=== PATIENT | female | born 1935 | race Caucasian/White ===

== ENCOUNTER 2020-10-17 02:34 | Emergency (ER) | payer MEDICARE, OTHER ==
[~2020-10-17] VITALS: Ht 157.5 cm; Wt 58.5 kg
[~2020-10-17 02:34] MED LIST: AMOCLA500 PO; ASPI325 PO; ASPI81EC PO; ATOR40TA PO; BUTASPCAF PO; CEPH500 PO; CLOP75 PO; ESOM20 PO; GABA300 PO; LOVA20 PO; METO25ER PO; VERA100 PO; ZANAFLEX PO
[2020-10-17 02:52] LABS: BASOPHILS ABSOLUTE AUTO 0.04 K/mm3 (0.00-0.23); BASOPHILS PERCENT AUTO 1 % (0-2); EOSINOPHILS ABSOLUTE AUTO 0.24 K/mm3 (0.00-0.68); EOSINOPHILS PERCENT AUTO 4 % (0-6); Hematocrit 37.7 % (33.0-51.0); Hemoglobin 12.3 g/dL (11.5-16.0); IMMATURE GRAN ABSOLUTE AUTO 0.01 K/mm3 (0.00-0.10); IMMATURE GRAN PERCENT AUTO 0 % (0-1); LYMPHOCYTES ABSOLUTE AUTO 1.33 K/mm3 (0.84-5.20); LYMPHOCYTES PERCENT AUTO 23 % (21-46); MONOCYTES ABSOLUTE AUTO 0.63 K/mm3 (0.16-1.47); MONOCYTES PERCENT AUTO 11 % (4-13); Mean Corpuscular HGB 32.3 pg (26.0-34.0); Mean Corpuscular HGB Conc 32.6 g/dL (31.5-36.5); Mean Corpuscular Volume 99 fL (80-100); Mean Platelet Volume 9.6 fL (9.1-12.4); NEUTROPHILS ABSOLUTE AUTO 3.65 K/mm3 (1.96-9.15); NEUTROPHILS PERCENT AUTO 62 % (41-73); Platelet Count 231 K/mm3 (150-400); RDW Coefficient Variation 12.4 % (11.7-14.2); Red Blood Cell Count 3.81 M/mm3 (3.80-5.20)
[2020-10-17 03:06] LABS: Alanine Aminotransfer (ALT/SGP 15 U/L (12-78); Albumin, Blood 3.7 g/dL (3.4-5.0); Albumin/Globulin Ratio 1.3 (0.8-1.8); Alk Phos 70 U/L (50-136); Anion Gap 6 mmol/L (6-16); Aspartate Aminotrans (AST/SGOT 19 U/L (12-37); Bilirubin, Total 0.5 mg/dL (0.1-1.0); Blood Urea Nitrogen 18 mg/dL (8-24); Bun/Creatinine Ratio 19.1 (12.0-20.0); CO2, Blood 27 mmol/L (21-32); Calcium, Blood 8.7 mg/dL (8.5-10.1); Chloride, Blood 105 mmol/L (98-108); Creatinine, Blood 0.94 mg/dL (0.40-1.00); Ethanol (Alcohol), Blood, Med <3 mg/dL; Globulin, Blood 2.9 g/dL (2.2-4.0); Glomerular Filtration Rate 60 (60-); Glucose, Blood 121 mg/dL (70-99); Sodium, Blood 138 mmol/L (136-145); Total Protein, Blood 6.6 g/dL (6.4-8.2)
[2020-10-17 03:09] LABS: International Normalized Ratio 1.02; Prothrombin Time Results 10.9 Sec (9.7-11.5)
== END 2020-10-17 06:50 | disposition home or self-care (01) ==
LOC: ER 02:34
PROVIDERS: Emergency Medicine
DX: S01.81XA Laceration without foreign body of other part of head, initial encounter (principal); I10 Essential (primary) hypertension; E78.00 Pure hypercholesterolemia, unspecified; K21.9 Gastro-esophageal reflux disease without esophagitis; Z79.02 Long term (current) use of antithrombotics/antiplatelets; Z79.899 Other long term (current) drug therapy; Z79.82 Long term (current) use of aspirin; Z88.5 Allergy status to narcotic agent; Z23 Encounter for immunization; Z95.5 Presence of coronary angioplasty implant and graft; W22.8XXA Striking against or struck by other objects, initial encounter
CPT/HCPCS: 12015; 36415; 70450; 72125; 80053; 85025; 85610; 85730; 86850; 86900; 86901; 90471; 90714; 93005; 93010; 96374-59; 96376-59; 99284-25; G0480; J3010

== ENCOUNTER 2022-08-28 08:50 | Inpatient (IN) | payer MEDICARE, OTHER ==
[~2022-08-28] VITALS: Ht 162.6 cm; Wt 48.2 kg
[~2022-08-28 08:50] MED LIST changes: -ASPI81EC PO; +ATOR10 PO; +Aspir 8181 MG PO; +MIRALAX17 GM PO; +OMEP20ER PO
[2022-08-28 09:33] LABS: BASOPHILS ABSOLUTE AUTO 0.03 K/mm3 (0.00-0.23); BASOPHILS PERCENT AUTO 0 % (0-2); EOSINOPHILS ABSOLUTE AUTO 0.07 K/mm3 (0.00-0.68); EOSINOPHILS PERCENT AUTO 1 % (0-6); IMMATURE GRAN ABSOLUTE AUTO 0.02 K/mm3 (0.00-0.10); IMMATURE GRAN PERCENT AUTO 0 % (0-1); LYMPHOCYTES ABSOLUTE AUTO 0.69 K/mm3 (0.84-5.20); LYMPHOCYTES PERCENT AUTO 9 % (21-46); MONOCYTES ABSOLUTE AUTO 0.63 K/mm3 (0.16-1.47); MONOCYTES PERCENT AUTO 8 % (4-13); Mean Corpuscular HGB 25.2 pg (26.0-34.0); Mean Corpuscular HGB Conc 30.4 g/dL (31.5-36.5); Mean Corpuscular Volume 83 fL (80-100); Mean Platelet Volume 9.8 fL (9.1-12.4); NEUTROPHILS ABSOLUTE AUTO 6.11 K/mm3 (1.96-9.15); NEUTROPHILS PERCENT AUTO 81 % (41-73); Platelet Count 268 K/mm3 (150-400); RDW Coefficient Variation 20.5 % (11.7-14.2); RDW Standard Deviation 62.1 fL (35.1-46.3); Red Blood Cell Count 2.06 M/mm3 (3.80-5.20); White Blood Cell Count 7.55 K/mm3 (4.00-11.30)
[2022-08-28 09:37] LABS: Hemoglobin 5.2 g/dL (11.5-16.0)
[2022-08-28 09:38] LABS: Hematocrit 17.1 % (33.0-51.0)
[2022-08-28 10:01] LABS: Albumin, Blood 2.9 g/dL (3.4-5.0); Albumin/Globulin Ratio 1.1 (0.8-1.8); Bilirubin, Total 0.3 mg/dL (0.1-1.0); Bun/Creatinine Ratio 56.5 (12.0-20.0); Calcium, Blood 7.9 mg/dL (8.5-10.1); Creatinine, Blood 0.83 mg/dL (0.40-1.00); Globulin, Blood 2.7 g/dL (2.2-4.0); Potassium, Blood 3.7 mmol/L (3.5-5.5); Total Protein, Blood 5.6 g/dL (6.4-8.2)
[2022-08-28 10:24] LABS: International Normalized Ratio 1.1; Prothrombin Time Results 11.5 Sec (9.7-11.5)
[2022-08-28] MEDS ORDERED: ATOR10 PO (10:54)
[2022-08-28] MEDS ORDERED: CLOP75 PO (10:55)
[2022-08-28] MEDS ORDERED: NITR.4SL SL (10:57)
[2022-08-28] MEDS ORDERED: OMEPRAZOLE 40 MG PO (10:58)
[2022-08-28 13:02] LABS: Source, Urine Clean Catch
[2022-08-28 13:09] LABS: Appearance, Urine Clear (Clear); Bilirubin, Urine Neg (Neg); Blood, Urine Neg (Neg); Color, Urine Yellow (P-Yellow); Glucose Qualitative, Urine Neg (Neg); Ketones, Urine Neg (Neg); Leukocyte Esterase, Urine Neg (Neg); Nitrite, Urine Neg (Neg); Protein, Urine Neg (Neg); Specific Gravity, Urine 1.015 (1.003-1.022); Urobilinogen, Urine NORM (Normal)
[2022-08-28 17:53] LABS: Hemoglobin 7.5 g/dL (11.5-16.0)
--- NOTE | 2022-08-28 19:36 | NUR ---
SHIFT SUMMARY 1215 RECEIVED PT TO 339 VIA GURNEY FROM ER. SLIDE TX TO BED. PT ADMITTED FOR ACUTE BLOOD LOSS D/T GIB. PT TO RECEIVE 2 UNITS PRBC'S; 1ST UNIT STARTED IN ER AND INFUSING UPON ADMISSION TO . PT TOLERATED WELL. 2ND UNIT STARTED SOON 1ST UNIT COMPLETE. VSS, SEE CHART. DR PRECIADO AND SOON DR LAGUERRE TO TO SEE PT AND DISCUSS PLAN OF CARE. PT TO HAVE SCOPE IN THE NEXT DAY OR SO. PER DR LAGUERRE, DIET CAN BE ADVANCED TO CL IF H/H INCREASED TO GREATER THAN 7.0. LAB RESULT SHOWING 7.5. PROTONIX DRIP STARTED PER DR PRECIADO. P/T IN TO SEE PT FOR EVAL AND ABLE TO STAND AT BS ONLY BREIFLY. PT IS VERY WEAK D/T BLOOD LOSS, WHICH RESULTED IN FALL AT HOME. RECEIVED REPORT FROM NASRA MOHR; PT LIVING ALONE BUT CLOSE TO DAUGHTER. ON PLAVIX FOR A-FIB WITH CONTROLED RATE. FAMILY TO AT BS WITH ADMISSION AND FOR THE AFTERNOON. FAMILY TO RETURN IN AM. PT TO MOVE TO [place] WITH SON AT D/C FOR SAFETY. PT MEDICATED X1 FOR C/O PAIN TO L BACK. DR PRECIADO NOTIFIED FOR ADDITIONAL PAIN MEDICATION; NO NEW ORDERS RECEIVED. PT REPOSITIONED NEEDED FOR COMFORT. PT OFFERED CL DIET; REQUESTED ICE WATER AND CHICKEN BROTH AT THIS TIME. CALL LT IN REACH. REPORT GIVEN TO UMA MOHR.
[2022-08-29 01:25] LABS: BASOPHILS ABSOLUTE AUTO 0.04 K/mm3 (0.00-0.23); BASOPHILS PERCENT AUTO 1 % (0-2); EOSINOPHILS ABSOLUTE AUTO 0.08 K/mm3 (0.00-0.68); EOSINOPHILS PERCENT AUTO 1 % (0-6); Hematocrit 22.4 % (33.0-51.0); Hemoglobin 7.1 g/dL (11.5-16.0); IMMATURE GRAN ABSOLUTE AUTO 0.02 K/mm3 (0.00-0.10); IMMATURE GRAN PERCENT AUTO 0 % (0-1); LYMPHOCYTES ABSOLUTE AUTO 0.99 K/mm3 (0.84-5.20); LYMPHOCYTES PERCENT AUTO 16 % (21-46); MONOCYTES ABSOLUTE AUTO 0.64 K/mm3 (0.16-1.47); MONOCYTES PERCENT AUTO 10 % (4-13); Mean Corpuscular HGB Conc 31.7 g/dL (31.5-36.5); Mean Corpuscular Volume 82 fL (80-100); Mean Platelet Volume 9.6 fL (9.1-12.4); NEUTROPHILS PERCENT AUTO 72 % (41-73); Platelet Count 200 K/mm3 (150-400); RDW Coefficient Variation 18.5 % (11.7-14.2); RDW Standard Deviation 54.6 fL (35.1-46.3); Red Blood Cell Count 2.73 M/mm3 (3.80-5.20); White Blood Cell Count 6.27 K/mm3 (4.00-11.30)
[2022-08-29 01:40] LABS: Bun/Creatinine Ratio 37.9 (12.0-20.0); Calcium, Blood 7.7 mg/dL (8.5-10.1); Creatinine, Blood 0.82 mg/dL (0.40-1.00); Potassium, Blood 3.4 mmol/L (3.5-5.5)
--- NOTE | 2022-08-29 05:53 | NUR ---
Patient new admit for GI bleed. Protinix drip infusing, 1 bag of NS infused. Patient reported recent GLF, and severe back pain. 500mg Tylenol given for pain & heating pad provided, PRNs not effective. MD ordered 1 dose of IV Fentynal x1 & Percocet Q6H PRN for pain control. IV Fentynal administred, PRN effective. Patient resting comfortably all night. Vitals stable. Clear liquid diet ordered, plan is for GI scope later today. Awaiting MD orders. Will continue to monitor for GI bleeding, weakness. Bed alarm activated & audible, call-light in reach.
[2022-08-29 09:27] LABS: Hematocrit 21.8 % (33.0-51.0); Hemoglobin 6.7 g/dL (11.5-16.0)
[2022-08-29 17:11] LABS: BASOPHILS ABSOLUTE AUTO 0.04 K/mm3 (0.00-0.23); BASOPHILS PERCENT AUTO 1 % (0-2); EOSINOPHILS ABSOLUTE AUTO 0.23 K/mm3 (0.00-0.68); EOSINOPHILS PERCENT AUTO 4 % (0-6); Hematocrit 25.3 % (33.0-51.0); IMMATURE GRAN ABSOLUTE AUTO 0.02 K/mm3 (0.00-0.10); IMMATURE GRAN PERCENT AUTO 0 % (0-1); LYMPHOCYTES ABSOLUTE AUTO 0.78 K/mm3 (0.84-5.20); LYMPHOCYTES PERCENT AUTO 14 % (21-46); MONOCYTES ABSOLUTE AUTO 0.52 K/mm3 (0.16-1.47); MONOCYTES PERCENT AUTO 9 % (4-13); Mean Corpuscular HGB 26.3 pg (26.0-34.0); Mean Corpuscular HGB Conc 31.6 g/dL (31.5-36.5); Mean Corpuscular Volume 83 fL (80-100); Mean Platelet Volume 9.7 fL (9.1-12.4); NEUTROPHILS ABSOLUTE AUTO 3.98 K/mm3 (1.96-9.15); NEUTROPHILS PERCENT AUTO 72 % (41-73); NRBC ABSOLUTE 0.03 K/mm3 (0.00-0.02); NRBC Auto 0.5 /100 WBC (0.0-0.2); Platelet Count 193 K/mm3 (150-400); RDW Coefficient Variation 18.2 % (11.7-14.2); RDW Standard Deviation 53.1 fL (35.1-46.3); Red Blood Cell Count 3.04 M/mm3 (3.80-5.20); White Blood Cell Count 5.57 K/mm3 (4.00-11.30)
--- NOTE | 2022-08-29 18:46 | NUR ---
SHIFT SUMMARY- PT IS A/O, PLESANT AND COOPERATIVE. SHE IS ON A CLEAR LIQUID DIET. HER SON WAS AT BEDSIDE THIS SHIFT. PLAN IS FOR HER TO GO FOR A SCOPE TOMORROW. SHE WILL BE NPO AFTERMIDNIGHT. SHE RECIEVED ONE UNIT OF BLOOD THIS SHIFT. HER HGB IMPROVED. HER BED IS IN THE LOW POSITION AND CALL LIGHT IS WITHIN REACH. SHE IS RUNNING ON THE [employer] DRIP
--- NOTE | 2022-08-30 04:49 | NUR ---
NIGHTSHIFT SUMMARY Patient awoke began yelling for help, she stated she forgot where she was at. Patient incontinent of bladder, provided pa-care, no signs of bleeding noted. Patient still complaining of severe back pain. Heating pad in place, administred Percocet for pain, PRN effective. Protonix gtt infusing continously. Patient slept comfortably all night, respirations even/nonlabored. NPO at midnight, in prep for scope tomorrow. Bed alarms activated/audible, call light in reach. Will continue plan of care.
[2022-08-30 10:08] LABS: BASOPHILS ABSOLUTE AUTO 0.03 K/mm3 (0.00-0.23); BASOPHILS PERCENT AUTO 1 % (0-2); EOSINOPHILS ABSOLUTE AUTO 0.21 K/mm3 (0.00-0.68); EOSINOPHILS PERCENT AUTO 3 % (0-6); Hematocrit 30.2 % (33.0-51.0); Hemoglobin 9.3 g/dL (11.5-16.0); IMMATURE GRAN ABSOLUTE AUTO 0.01 K/mm3 (0.00-0.10); IMMATURE GRAN PERCENT AUTO 0 % (0-1); LYMPHOCYTES ABSOLUTE AUTO 0.63 K/mm3 (0.84-5.20); LYMPHOCYTES PERCENT AUTO 10 % (21-46); MONOCYTES ABSOLUTE AUTO 0.54 K/mm3 (0.16-1.47); MONOCYTES PERCENT AUTO 9 % (4-13); Mean Corpuscular HGB 26.4 pg (26.0-34.0); Mean Corpuscular HGB Conc 30.8 g/dL (31.5-36.5); Mean Corpuscular Volume 86 fL (80-100); Mean Platelet Volume 9.9 fL (9.1-12.4); NEUTROPHILS ABSOLUTE AUTO 4.96 K/mm3 (1.96-9.15); NEUTROPHILS PERCENT AUTO 78 % (41-73); Platelet Count 186 K/mm3 (150-400); RDW Coefficient Variation 19.3 % (11.7-14.2); RDW Standard Deviation 57.7 fL (35.1-46.3); Red Blood Cell Count 3.52 M/mm3 (3.80-5.20); White Blood Cell Count 6.38 K/mm3 (4.00-11.30)
--- NOTE | 2022-08-30 10:33 | NUR ---
THIS AM, WHEN OT CAME INTO PATIENT ROOM, SHE STATED SHE DIDN'T WANT ANY FOOD, AND DIDN'T WANT TO DO ANYTHING. SHE SAID THAT SHE IS READY TO GO HOME AND . MOOD CHANGED BY THE TIME THIS INSIDE SALES DIRECTOR WENT TO SEE PATIENT, SHE DID NOT MAKE ANY FURTHER STATEMENTS AND WAS DRINKING AN ENSURE. PATIENT NPO NOW FOR SCOPE AT SOME POINT TODAY.
[2022-08-30 10:43] LABS: Albumin, Blood 3.2 g/dL (3.4-5.0); Anion Gap 8 mmol/L (6-16); Blood Urea Nitrogen 16 mg/dL (8-24); Bun/Creatinine Ratio 18.6 (12.0-20.0); CO2, Blood 22 mmol/L (21-32); Calcium, Blood 8.5 mg/dL (8.5-10.1); Chloride, Blood 109 mmol/L (98-108); Creatinine, Blood 0.86 mg/dL (0.40-1.00); Glomerular Filtration Rate 66 (60-); Glucose, Blood 164 mg/dL (70-99); Phosphorus, Blood 3.7 mg/dL (2.5-4.9); Potassium, Blood 3.5 mmol/L (3.5-5.5); Sodium, Blood 139 mmol/L (136-145)
--- NOTE | 2022-08-30 17:32 | NUR ---
PATIENT MOOD DURING THIS SHIFT WAS SOMEWHAT DEPRESSED. SHE STATED TO MULTIPLE STAFF THAT SHE IS TIRED OF ALL OF THIS AND JUST WANT TO STOP EVERYTHING. .SHE WENT DOWN FOR HER SCOPE AT 1730. PROTONIX HAS BEEN RUNNING ALL SHIFT. THERE IS A BAG THAT PARTIALLY INFUSED ON THE IV POLE FOR WHEN SHE COMES BACK FROM SURGERY IF THEY DON'T DISCONTINUE THAT MEDICATION. SHE WAS GIVEN PAIN MEDICATION X 1, AND SLEPT AFTERWARD. BLOOD CONSENT AND CHART SENT DOWN WITH PATIENT FOR PROCEDURE. PATIENT HAD A BM THAT WAS HERZOG IN COLOR THIS SHIFT.
--- NOTE | 2022-08-30 17:54 | NUR ---
08/30/22 1754 Darya Dc HISTORY, CHART, MEDICATIONS AND ALLERGIES REVIEWED BEFORE START OF PROCEDURE. PATIENT CONFIRMS NPO STATUS AND AGREES WITH SCHEDULED PROCEDURE. 3-LEAD EKG REVIEWED WITH PHYSICIAN PRIOR TO START OF PROCEDURE. MONITOR INTACT WITH CONTINUOUS PULSE OXIMETRY,CAPNOGRAPHY, 3-LEAD EKG, INTERMITTENT BP. SUPPLEMENTAL O2 TO BE TITRATED THROUGHOUT PROCEDURE TO MAINTAIN O2 SATURATION ABOVE 90%. PATIENT DETERMINED TO BE ASA APPROPRIATE FOR PROPOFOL SEDATION PRIOR TO START OF PROCEDURE BY DR. LAGUERRE AND DR. PEREZ, AFTER ANESTHESIA CONSULT/REVIEW.
--- NOTE | 2022-08-30 19:06 | NUR ---
PART 2 SHIFT SUMMARY PATIENT RETURNED FROM SCOPE. SHE WAS SEDATED WITH 170MG PROPOFAL. A GASTRIC ULCER OF GOOD SIZE WAS FOUND. ALSO, PATIENT HAS INFLAMATION OF THE ESOPHAGUS. SHE IS STILL ON THE PROTONIX CONTINUOUS DRIP AT 10 ML/HR. DIET IS CLEAR LIQUID ADVANCE TOLERATED. FIRST SET OF VITALS DONE WHEN SHE RETURNED TO THE FLOOR AND ARE WNL.
--- NOTE | 2022-08-31 03:55 | NUR ---
SHIFT SUMMARY NO ACUTE CHANGES TO REPORT THIS SHIFT, PT HAS RESTED T/O THE NIGHT. S/P UPPER SCOPE. SHE HAS RECOVERED WELL, POST OP VITALS ARE STABLE. PROTONIX GTT INFUSING. NO SIGNS OF BLEEDING THIS SHIFT. SHE HAS BEEN UP AND AMBULATED TO THE B[facility]. A/OX4, PLESANT AND COOPERATIVE WITH CARE. BED IN LOWEST POSITON, CALL LIGHT WITHIN REACH.
[2022-08-31 06:42] LABS: BASOPHILS ABSOLUTE AUTO 0.03 K/mm3 (0.00-0.23); BASOPHILS PERCENT AUTO 1 % (0-2); EOSINOPHILS ABSOLUTE AUTO 0.24 K/mm3 (0.00-0.68); EOSINOPHILS PERCENT AUTO 5 % (0-6); Hematocrit 26.9 % (33.0-51.0); Hemoglobin 8.3 g/dL (11.5-16.0); IMMATURE GRAN ABSOLUTE AUTO 0.01 K/mm3 (0.00-0.10); IMMATURE GRAN PERCENT AUTO 0 % (0-1); LYMPHOCYTES ABSOLUTE AUTO 0.66 K/mm3 (0.84-5.20); LYMPHOCYTES PERCENT AUTO 14 % (21-46); MONOCYTES ABSOLUTE AUTO 0.55 K/mm3 (0.16-1.47); MONOCYTES PERCENT AUTO 11 % (4-13); Mean Corpuscular HGB 26.4 pg (26.0-34.0); Mean Corpuscular HGB Conc 30.9 g/dL (31.5-36.5); Mean Corpuscular Volume 86 fL (80-100); Mean Platelet Volume 10.5 fL (9.1-12.4); NEUTROPHILS ABSOLUTE AUTO 3.39 K/mm3 (1.96-9.15); NEUTROPHILS PERCENT AUTO 70 % (41-73); Platelet Count 179 K/mm3 (150-400); RDW Coefficient Variation 19.3 % (11.7-14.2); RDW Standard Deviation 57.1 fL (35.1-46.3); Red Blood Cell Count 3.14 M/mm3 (3.80-5.20); White Blood Cell Count 4.88 K/mm3 (4.00-11.30)
[2022-08-31 06:53] LABS: Albumin, Blood 2.7 g/dL (3.4-5.0); Anion Gap 8 mmol/L (6-16); Blood Urea Nitrogen 14 mg/dL (8-24); Bun/Creatinine Ratio 17.6 (12.0-20.0); CO2, Blood 24 mmol/L (21-32); Calcium, Blood 8.1 mg/dL (8.5-10.1); Chloride, Blood 107 mmol/L (98-108); Glomerular Filtration Rate 72 (60-); Glucose, Blood 109 mg/dL (70-99); Phosphorus, Blood 3.5 mg/dL (2.5-4.9); Potassium, Blood 3.5 mmol/L (3.5-5.5); Sodium, Blood 139 mmol/L (136-145)
[2022-08-31 10:55] LABS: BASOPHILS ABSOLUTE AUTO 0.03 K/mm3 (0.00-0.23); BASOPHILS PERCENT AUTO 1 % (0-2); EOSINOPHILS ABSOLUTE AUTO 0.23 K/mm3 (0.00-0.68); EOSINOPHILS PERCENT AUTO 4 % (0-6); Hematocrit 29.1 % (33.0-51.0); Hemoglobin 8.8 g/dL (11.5-16.0); IMMATURE GRAN ABSOLUTE AUTO 0.02 K/mm3 (0.00-0.10); IMMATURE GRAN PERCENT AUTO 0 % (0-1); LYMPHOCYTES ABSOLUTE AUTO 0.48 K/mm3 (0.84-5.20); LYMPHOCYTES PERCENT AUTO 9 % (21-46); MONOCYTES ABSOLUTE AUTO 0.49 K/mm3 (0.16-1.47); MONOCYTES PERCENT AUTO 9 % (4-13); Mean Corpuscular HGB Conc 30.2 g/dL (31.5-36.5); Mean Corpuscular Volume 86 fL (80-100); Mean Platelet Volume 10.2 fL (9.1-12.4); NEUTROPHILS ABSOLUTE AUTO 4.21 K/mm3 (1.96-9.15); NEUTROPHILS PERCENT AUTO 77 % (41-73); Platelet Count 182 K/mm3 (150-400); RDW Coefficient Variation 19.5 % (11.7-14.2); RDW Standard Deviation 57.4 fL (35.1-46.3); Red Blood Cell Count 3.39 M/mm3 (3.80-5.20); White Blood Cell Count 5.46 K/mm3 (4.00-11.30)
--- NOTE | 2022-08-31 12:04 | NUR ---
IV REMOVED & INTACT
[2022-08-31] MEDS ORDERED: SUCR1 PO (13:43)
--- NOTE | 2022-08-31 15:31 | NUR ---
DISCHARGE PT DISCHARGED AFTER REPEAT BLOODWORK. NO ACUTE CHANGES IN ASSESSMENT PRIOR TO DC. PT & HER SON, GENE, WERE EDUCATED ON NEW MEDS AND FOLLOW UP INSTRUCTIONS. BOTH DENIED FURTHER NEED AT THIS TIME. PT WHEELED OUT BY THIS RN AND DRIVEN HOME BY HER SON.
== END 2022-08-31 15:14 | disposition home health service (06) | DRG 378 ==
LOC: ER 08:50 → MEDS 10:50
PROVIDERS: Family Medicine; Internal Medicine Gastroenterology; Physician Assistant; ADMIT Internal Medicine
PROC: 30233N1 Transfusion of Nonautologous Red Blood Cells into Peripheral Vein, Percutaneous Approach (ICD-10-PCS; 2022-08-28)
PROC: 0W3P8ZZ Control Bleeding in Gastrointestinal Tract, Via Natural or Artificial Opening Endoscopic (ICD-10-PCS; principal; 2022-08-30 17:30)
DX: K25.4 Chronic or unspecified gastric ulcer with hemorrhage (principal); D62 Acute posthemorrhagic anemia; K22.10 Ulcer of esophagus without bleeding; K44.9 Diaphragmatic hernia without obstruction or gangrene; Z88.5 Allergy status to narcotic agent; K21.9 Gastro-esophageal reflux disease without esophagitis; I10 Essential (primary) hypertension; Z66 Do not resuscitate; M19.90 Unspecified osteoarthritis, unspecified site; I25.10 Atherosclerotic heart disease of native coronary artery without angina pectoris; Z98.49 Cataract extraction status, unspecified eye; Z95.5 Presence of coronary angioplasty implant and graft; Z79.82 Long term (current) use of aspirin; Z79.899 Other long term (current) drug therapy; Z79.02 Long term (current) use of antithrombotics/antiplatelets; R29.6 Repeated falls; G43.909 Migraine, unspecified, not intractable, without status migrainosus; Z96.652 Presence of left artificial knee joint; E78.00 Pure hypercholesterolemia, unspecified
CPT/HCPCS: 36415; 70450; 71045; 80048; 80053; 80069; 81003; 83735; 84484; 85014; 85018; 85025; 85610; 86850; 86900; 86901; 86923; 93005; 93010; 94760; 97110; 97116; 97161; 97166; 97530; 97535; A9270; C9113; J0171; J2704; J3010; J7050; P9016

== ENCOUNTER 2023-07-13 12:09 | Emergency (ER) | payer MEDICARE, OTHER ==
[~2023-07-13] VITALS: Ht 160 cm; Wt 59.0 kg
[~2023-07-13 12:09] MED LIST changes: +NITR.4SL SL; +OMEPRAZOLE 40 MG PO; +SUCR1 PO
[2023-07-13] MEDS ORDERED: ACET325 PO (13:16)
[2023-07-13] MEDS ORDERED: DULO30 (13:16)
[2023-07-13] MEDS ORDERED: MELO7.5 (13:19)
[2023-07-13] MEDS ORDERED: LIDO700A20 TOP (13:20)
[2023-07-13 19:00] VITALS: BP 174/86
== END 2023-07-13 19:16 | disposition home or self-care (01) ==
LOC: ER 12:09
DX: S70.02XA Contusion of left hip, initial encounter (principal); S20.212A Contusion of left front wall of thorax, initial encounter; W18.30XA Fall on same level, unspecified, initial encounter; Z88.5 Allergy status to narcotic agent; Z79.02 Long term (current) use of antithrombotics/antiplatelets; Z79.899 Other long term (current) drug therapy; G43.909 Migraine, unspecified, not intractable, without status migrainosus; K21.9 Gastro-esophageal reflux disease without esophagitis; I10 Essential (primary) hypertension
CPT/HCPCS: 71101; 73502; 99284-25; A9270

== ENCOUNTER 2023-07-17 11:55 | Emergency (ER) | payer OTHER, MEDICARE ==
[~2023-07-17] VITALS: Ht 167.6 cm; Wt 59.0 kg
[~2023-07-17 11:55] MED LIST changes: +ACET325 PO; +DULO30; +LIDO700A20 TOP; +MELO7.5 PO
[2023-07-17] MEDS ORDERED: PANTOPRAZOLE SO40 M2 PO (12:15)
[2023-07-17 13:10] LABS: BASOPHILS ABSOLUTE AUTO 0.04 K/mm3 (0.00-0.23); BASOPHILS PERCENT AUTO 1 % (0-2); EOSINOPHILS ABSOLUTE AUTO 0.09 K/mm3 (0.00-0.68); EOSINOPHILS PERCENT AUTO 2 % (0-6); Hematocrit 34.7 % (33.0-51.0); Hemoglobin 10.8 g/dL (11.5-16.0); IMMATURE GRAN ABSOLUTE AUTO 0.01 K/mm3 (0.00-0.10); IMMATURE GRAN PERCENT AUTO 0 % (0-1); LYMPHOCYTES ABSOLUTE AUTO 0.68 K/mm3 (0.84-5.20); LYMPHOCYTES PERCENT AUTO 13 % (21-46); MONOCYTES PERCENT AUTO 11 % (4-13); Mean Corpuscular HGB 27.1 pg (26.0-34.0); Mean Corpuscular HGB Conc 31.1 g/dL (31.5-36.5); Mean Corpuscular Volume 87 fL (80-100); NEUTROPHILS ABSOLUTE AUTO 3.96 K/mm3 (1.96-9.15); NEUTROPHILS PERCENT AUTO 74 % (41-73); Platelet Count 273 K/mm3 (150-400); RDW Coefficient Variation 15.6 % (11.7-14.2); RDW Standard Deviation 49.1 fL (35.1-46.3); Red Blood Cell Count 3.99 M/mm3 (3.80-5.20); White Blood Cell Count 5.38 K/mm3 (4.00-11.30)
[2023-07-17 13:23] LABS: Albumin, Blood 3.7 g/dL (3.4-5.0); Albumin/Globulin Ratio 1.2 (0.8-1.8); Bilirubin, Total 0.6 mg/dL (0.1-1.0); Bun/Creatinine Ratio 28.3 (12.0-20.0); Calcium, Blood 8.9 mg/dL (8.5-10.1); Creatinine, Blood 0.92 mg/dL (0.40-1.00); Globulin, Blood 3.1 g/dL (2.2-4.0); Magnesium, Blood 2.1 mg/dL (1.6-2.4); Potassium, Blood 3.8 mmol/L (3.5-5.5); Total Protein, Blood 6.8 g/dL (6.4-8.2)
[2023-07-17 13:50] LABS: Source, Urine Straight Cath
[2023-07-17 14:14] LABS: Appearance, Urine Cloudy (Clear); Bilirubin, Urine Neg (Neg); Blood, Urine 2+ (Neg); Color, Urine Yellow (P-Yellow); Glucose Qualitative, Urine Neg (Neg); Ketones, Urine Neg (Neg); Leukocyte Esterase, Urine 1+ (Neg); Nitrite, Urine Neg (Neg); Protein, Urine 1+ (Neg); Specific Gravity, Urine 1.025 (1.003-1.022); Urobilinogen, Urine NORM (Normal)
[2023-07-17 14:24] LABS: Hyaline Casts 0-2 /lpf (0-2)
[2023-07-17 14:25] LABS: Bacteria Many /hpf; Red Blood Cells, Urine 0-2 /hpf (0-2); Squamous Epithelial Cells Rare /hpf (Few)
[2023-07-17] MEDS ORDERED: CEPH500 PO (15:22)
[2023-07-17 15:30] VITALS: BP 178/98
== END 2023-07-17 15:56 | disposition home or self-care (01) ==
LOC: ER 11:55
PROVIDERS: Student in an Organized Health Care Education/Training Program
DX: N39.0 Urinary tract infection, site not specified (principal); S09.90XA Unspecified injury of head, initial encounter; M25.561 Pain in right knee; M54.2 Cervicalgia; M25.552 Pain in left hip; D64.9 Anemia, unspecified; I10 Essential (primary) hypertension; E78.00 Pure hypercholesterolemia, unspecified; I25.10 Atherosclerotic heart disease of native coronary artery without angina pectoris; Z88.5 Allergy status to narcotic agent; Z79.899 Other long term (current) drug therapy; W01.0XXA Fall on same level from slipping, tripping and stumbling without subsequent striking against object, initial encounter
CPT/HCPCS: 51701; 70450; 72125; 73560-RT; 80053; 81001; 83735; 85025; 87086; 93005; 93010; 96365-59; 99285-25; J0696

== ENCOUNTER 2023-08-27 23:34 | Emergency (ER) | payer MEDICARE, OTHER ==
[~2023-08-27] VITALS: Ht 165.1 cm; Wt 49.9 kg
[~2023-08-27 23:34] MED LIST changes: +PANTOPRAZOLE SO40 M2 PO
[2023-08-28 02:48] VITALS: BP 159/108
== END 2023-08-28 02:50 | disposition home or self-care (01) ==
LOC: ER 23:34
DX: S40.012A Contusion of left shoulder, initial encounter (principal); F03.90 Unspecified dementia, unspecified severity, without behavioral disturbance, psychotic disturbance, mood disturbance, and anxiety; K21.9 Gastro-esophageal reflux disease without esophagitis; I25.10 Atherosclerotic heart disease of native coronary artery without angina pectoris; Z95.5 Presence of coronary angioplasty implant and graft; Z87.820 Personal history of traumatic brain injury; Z79.899 Other long term (current) drug therapy; W18.30XA Fall on same level, unspecified, initial encounter; Y92.091 Bathroom in other non-institutional residence as the place of occurrence of the external cause
CPT/HCPCS: 73030; 99283-25; A9270

== ENCOUNTER 2023-09-18 11:52 | Emergency (ER) | payer MEDICARE, OTHER ==
[~2023-09-18] VITALS: Ht 165.1 cm; Wt 59.0 kg
[2023-09-18] MEDS ORDERED: PROZAC2010 PO (12:00)
[2023-09-18 13:32] LABS: BASOPHILS ABSOLUTE AUTO 0.03 K/mm3 (0.00-0.23); BASOPHILS PERCENT AUTO 1 % (0-2); EOSINOPHILS ABSOLUTE AUTO 0.05 K/mm3 (0.00-0.68); EOSINOPHILS PERCENT AUTO 1 % (0-6); Hematocrit 33.6 % (33.0-51.0); Hemoglobin 11.3 g/dL (11.5-16.0); IMMATURE GRAN ABSOLUTE AUTO 0.01 K/mm3 (0.00-0.10); IMMATURE GRAN PERCENT AUTO 0 % (0-1); LYMPHOCYTES ABSOLUTE AUTO 0.68 K/mm3 (0.84-5.20); LYMPHOCYTES PERCENT AUTO 14 % (21-46); MONOCYTES ABSOLUTE AUTO 0.53 K/mm3 (0.16-1.47); MONOCYTES PERCENT AUTO 11 % (4-13); Mean Corpuscular HGB 29.6 pg (26.0-34.0); Mean Corpuscular HGB Conc 33.6 g/dL (31.5-36.5); Mean Corpuscular Volume 88 fL (80-100); Mean Platelet Volume 9.7 fL (9.1-12.4); NEUTROPHILS ABSOLUTE AUTO 3.68 K/mm3 (1.96-9.15); NEUTROPHILS PERCENT AUTO 74 % (41-73); Platelet Count 247 K/mm3 (150-400); RDW Coefficient Variation 15.2 % (11.7-14.2); Red Blood Cell Count 3.82 M/mm3 (3.80-5.20); White Blood Cell Count 4.98 K/mm3 (4.00-11.30)
[2023-09-18 13:38] LABS: Source, Urine Straight Cath
[2023-09-18 13:49] LABS: Bun/Creatinine Ratio 20.4 (12.0-20.0); Calcium, Blood 9.1 mg/dL (8.5-10.1); Creatinine, Blood 0.88 mg/dL (0.40-1.00)
[2023-09-18 13:57] LABS: Bilirubin, Urine Neg (Neg); Blood, Urine Neg (Neg); Color, Urine Yellow (P-Yellow); Glucose Qualitative, Urine Neg (Neg); Ketones, Urine Neg (Neg); Leukocyte Esterase, Urine Neg (Neg); Nitrite, Urine Neg (Neg); Protein, Urine Neg (Neg); Specific Gravity, Urine 1.015 (1.003-1.022); Urobilinogen, Urine NORM (Normal)
[2023-09-18 14:05] LABS: Appearance, Urine Clear (Clear)
[2023-09-18 19:30] VITALS: BP 161/101
== END 2023-09-18 19:55 | disposition home or self-care (01) ==
LOC: ER 11:52
PROVIDERS: Emergency Medicine
DX: S42.034A Nondisplaced fracture of lateral end of right clavicle, initial encounter for closed fracture (principal); S00.83XA Contusion of other part of head, initial encounter; I10 Essential (primary) hypertension; E78.00 Pure hypercholesterolemia, unspecified; M19.90 Unspecified osteoarthritis, unspecified site; I25.10 Atherosclerotic heart disease of native coronary artery without angina pectoris; Z87.820 Personal history of traumatic brain injury; K21.9 Gastro-esophageal reflux disease without esophagitis; Z95.5 Presence of coronary angioplasty implant and graft; Z79.899 Other long term (current) drug therapy; Z88.5 Allergy status to narcotic agent; W19.XXXA Unspecified fall, initial encounter; Y92.129 Unspecified place in nursing home as the place of occurrence of the external cause
CPT/HCPCS: 70450; 71046; 73030; 80048; 81003; 85025; 99284-25